=== PATIENT | male | born 1990 | race Caucasian/White ===

== ENCOUNTER 2020-10-29 00:37 | Emergency (ER) | payer OTHER ==
[2020-10-29 01:17] LABS: BASOPHIL 0.4 % (0-2); EOSINOPHIL 0.3 % (0-5); HCT 50.6 % (42.0-52.0); HGB 17.2 g/dl (13.2-18.0); LYMPHOCYTE 17.6 % (15-48); MCV 88.2 fL (78.0-100.0); MONOCYTE 6.5 % (0-12); NEUTROPHIL 74.6 % (41-80); NRBC 0; PLT 268 K/uL (150-400); RBC 5.74 M/uL (4.70-6.00); RDW 13.7 % (11.5-14.0); WBC 11.4 K/uL (4.0-10.5)
[2020-10-29 01:26] LABS: BILIRUBIN NEGATIVE (NEGATIVE); BLOOD TRACE-INTACT Ery/uL (NEGATIVE); CLARITY CLEAR (CLEAR); COLOR YELLOW (YELLOW); GLUCOSE (U) NORMAL (NORMAL); LEUKOCYTES NEGATIVE Leu/uL (NEGATIVE); NITRITE NEGATIVE (NEGATIVE); PROTEIN NEGATIVE (NEGATIVE); SPECIFIC GRAVITY <=1.005 (1.001-1.030); UROBILINOGEN 0.2 mg/dL (0.2-1.0); pH 5.5 (5.0-9.0)
[2020-10-29 01:27] LABS: AMPHETAMINES NEGATIVE (NEGATIVE); BARBITURATES NEGATIVE (NEGATIVE); ECSTASY (MDMA) NEGATIVE (NEGATIVE); MARIJUANA (THC) NEGATIVE (NEGATIVE); METHADONE NEGATIVE (NEGATIVE); OPIATES NEGATIVE (NEGATIVE); OXYCODONE NEGATIVE (NEGATIVE)
[2020-10-29 01:30] LABS: SQUAMOUS EPITHELIAL CELLS RARE; URINARY RBC RARE
[2020-10-29 01:47] LABS: ALBUMIN 3.9 g/dL (3.4-5.0); BILIRUBIN - TOTAL 0.4 mg/dL (0.2-1.0); BUN/CREAT RATIO (CALC) 7.4 RATIO; CREATININE 0.81 mg/dL (0.67-1.17); GLOBULIN (CALCULATION) 4.2 g/dL; TOTAL PROTEIN 8.1 g/dL (6.4-8.2)
[2020-10-29] MEDS ORDERED: NAPROXEN500 MG PO (02:48)
== END 2020-10-29 03:16 | disposition home or self-care (01) ==
LOC: FER 00:37
PROVIDERS: Emergency Medicine
DX: S02.5XXA Fracture of tooth (traumatic), initial encounter for closed fracture (principal); S30.0XXA Contusion of lower back and pelvis, initial encounter; R04.0 Epistaxis; M21.952 Unspecified acquired deformity of left thigh; E66.9 Obesity, unspecified; F17.200 Nicotine dependence, unspecified, uncomplicated; Z86.12 Personal history of poliomyelitis; W10.9XXA Fall (on) (from) unspecified stairs and steps, initial encounter; Y04.2XXA Assault by strike against or bumped into by another person, initial encounter; Y07.04 Female partner, perpetrator of maltreatment and neglect
CPT/HCPCS: 36415; 70450; 70486; 72125; 72131; 80053; 80305; 81001; 85025; G0480; J2270; J2405

== ENCOUNTER 2021-04-18 01:59 | Emergency (ER) | payer OTHER ==
[~2021-04-18 01:59] MED LIST: NAPROXEN500 MG PO
[2021-04-18 02:21] LABS: BASOPHIL 0.4 % (0-2); HCT 50.8 % (42.0-52.0); HGB 17.5 g/dl (13.2-18.0); LYMPHOCYTE 44.8 % (15-48); MCH 30.8 pg (25.0-31.0); MCHC 34.4 g/dL (32.0-36.0); MCV 89.3 fL (78.0-100.0); MONOCYTE 7.7 % (0-12); MPV 9.2 fL (6.0-9.5); NEUTROPHIL 45.9 % (41-80); NRBC 0; PLT 247 K/uL (150-400); RBC 5.69 M/uL (4.70-6.00); RDW 14.3 % (11.5-14.0); WBC 10.1 K/uL (4.0-10.5)
[2021-04-18 02:34] LABS: ALBUMIN 3.7 g/dL (3.4-5.0); BILIRUBIN - TOTAL 0.8 mg/dL (0.2-1.0); BUN/CREAT RATIO (CALC) 8.5 RATIO; CREATININE 0.71 mg/dL (0.67-1.17); GLOBULIN (CALCULATION) 4.3 g/dL; POTASSIUM 3.9 mmol/L (3.5-5.1)
[2021-04-18] MEDS ORDERED: NORCO 5-325 TA1 EACH PO (05:02)
[2021-04-18] MEDS ORDERED: BACLOFEN10 MG PO (05:11)
== END 2021-04-18 06:05 | disposition home or self-care (01) ==
LOC: FER 01:59
PROVIDERS: Emergency Medicine
DX: M25.551 Pain in right hip (principal); F17.210 Nicotine dependence, cigarettes, uncomplicated
CPT/HCPCS: 36415; 73502; 73700; 80053; 85025; J1170; J2405